=== PATIENT | male | born 1995 | race Caucasian/White ===

== ENCOUNTER 2021-07-02 10:11 | Inpatient (IN) | payer OTHER ==
[2021-07-02 10:38] VITALS: BMI 19.5
[2021-07-02] MEDS ORDERED: MAGNESIUM CITRATE 300 ML BOTTLE PO PRN (13:05)
[2021-07-02] MEDS ORDERED: MAGNESIUM HYDROX 2400MG/30ML ORAL SUSPENSION 30 ML CUP PO PRN (13:05)
[2021-07-02] MEDS ORDERED: P-EPHED 60MG/TRIPROLIDI 2.5MG TABLET PO PRN (13:05)
[2021-07-02] MEDS ORDERED: MAG HYDROX/AL HYDROX/SIMETH 30 ML UNIT-DOSE CUP PO PRN (13:05)
[2021-07-02] MEDS ORDERED: guaiFENesin 200 MG/10 ML 10 ML UNIT-DOSE CUPS PO PRN (13:05)
[2021-07-02] MEDS ORDERED: LOPERAMIDE HCL 2 MG CAPSULE PO PRN (13:05)
[2021-07-02] MEDS ORDERED: TUBERCULIN PPD 5 TU/0.1ML VIAL ID ONE (14:07)
[2021-07-02] MEDS: PRENATAL VITAMINS W/ FOLIC ACID TABLET (FP) PO SCH (14:14)
[2021-07-02] MEDS: hydrOXYzine PAMOATE 25 MG CAPSULE (FP) PO SCH ×3 (14:14→21:01)
[2021-07-02] MEDS: NICOTINE 21 MG/24 HOURS TOPICAL PATCH TD SCH (14:14)
[2021-07-02 15:12] LABS: HEMATOCRIT 43.9 % (35.4-49); HEMOGLOBIN 15.2 GM/dL (11.7-16.9); MCH 33.3 pg (25.7-33.7); MCHC 34.5 g/dl (32.0-35.9); MEAN CELL VOLUME 96.5 fl (80-96); MEAN PLT VOLUME 8.5 fl (7.5-11.1); PLATELET COUNT 290 10^3/uL (134-434); RBC 4.55 M/mm3 (4.00-5.60); RDW 13.2 % (11.9-15.9); WHITE BLOOD COUNT 6.9 K/mm3 (4.0-10.0)
[2021-07-02 15:25] LABS: ALBUMIN 4.6 g/dl (3.4-5.0); BLOOD UREA NITROGEN 17.6 mg/dL (7-18); CALCIUM 9.4 mg/dL (8.5-10.1)
[2021-07-02 15:29] LABS: CREATININE 1.1 mg/dL (0.55-1.3)
[2021-07-02 15:30] LABS: BILIRUBIN,TOTAL 1.6 mg/dL (0.2-1); TOT PROT 7.5 g/dl (6.4-8.2)
[2021-07-02 19:15] LABS: SYPHILIS W/ RPR CONF NON-REACTIVE (NONREACTIVE)
[2021-07-02 19:31] LABS: HIV INTERPRETATION NEGATIVE (NEGATIVE)
[2021-07-02] MEDS: THIAMINE HCL 100 MG TABLET (FP) PO SCH (21:01)
[2021-07-02] MEDS: MELATONIN 5 MG TABLETS PO SCH (21:02)
[2021-07-02] MEDS: NICOTINE 10 MG CARTRIDGE (INHALER) IH PRN (21:05)
[2021-07-03] MEDS: hydrOXYzine PAMOATE 25 MG CAPSULE (FP) PO SCH ×5 (08:08→21:13)
[2021-07-03] MEDS: PRENATAL VITAMINS W/ FOLIC ACID TABLET (FP) PO SCH (09:29)
[2021-07-03] MEDS: NICOTINE 21 MG/24 HOURS TOPICAL PATCH TD SCH (09:29)
[2021-07-03 11:58] LABS: PH,URINE 5.5 (5.0-8.0); URINE APPEARANCE CLEAR; URINE BILIRUBIN NEGATIVE (NEGATIVE); URINE COLOR YELLOW; URINE GLUCOSE (UA) NEGATIVE (NEGATIVE); URINE KETONE TRACE (NEGATIVE); URINE LEUK ESTERASE NEGATIVE (NEGATIVE); URINE NITRITE NEGATIVE (NEGATIVE); URINE PROTEIN NEGATIVE (NEGATIVE); URINE UROBILINOGEN 0.2 mg/dL (0.2-1.0)
[2021-07-03] MEDS ORDERED: BENZOYL PEROXIDE 5% 60 GM GEL..GRAM. TP ONE (12:11)
[2021-07-03] MEDS: COLLOIDAL OATMEAL 1 BAR EACH TP PRN (15:15)
[2021-07-03] MEDS: THIAMINE HCL 100 MG TABLET (FP) PO SCH (21:13)
[2021-07-03] MEDS: MELATONIN 5 MG TABLETS PO SCH (21:14)
[2021-07-04] MEDS: hydrOXYzine PAMOATE 25 MG CAPSULE (FP) PO SCH ×5 (06:36→21:11)
[2021-07-04] MEDS: NICOTINE 21 MG/24 HOURS TOPICAL PATCH TD SCH (09:58)
[2021-07-04] MEDS: PRENATAL VITAMINS W/ FOLIC ACID TABLET (FP) PO SCH (09:58)
[2021-07-04] MEDS ORDERED: MODERNA COVID-19 VACC,MRNA/PF 50 MCG/0.25 ML EACH IM ONE (11:00)
[2021-07-04] MEDS: MELATONIN 5 MG TABLETS PO SCH (21:11)
[2021-07-04] MEDS: THIAMINE HCL 100 MG TABLET (FP) PO SCH (21:11)
[2021-07-04] MEDS: IBUPROFEN 400 MG TABLET (FP) PO PRN (21:12)
[2021-07-05] MEDS: ACETAMINOPHEN 325 MG TABLET (FP) PO PRN (05:49)
[2021-07-05] MEDS: hydrOXYzine PAMOATE 25 MG CAPSULE (FP) PO SCH ×5 (05:50→21:14)
[2021-07-05] MEDS: PRENATAL VITAMINS W/ FOLIC ACID TABLET (FP) PO SCH (09:31)
[2021-07-05] MEDS: NICOTINE 21 MG/24 HOURS TOPICAL PATCH TD SCH (09:33)
[2021-07-05] MEDS: IBUPROFEN 400 MG TABLET (FP) PO PRN ×2 (09:33→17:48)
[2021-07-05] MEDS: ARIPiprazole 2 MG TABLET PO SCH (11:04)
[2021-07-05] MEDS: THIAMINE HCL 100 MG TABLET (FP) PO SCH (21:14)
[2021-07-05] MEDS: MELATONIN 5 MG TABLETS PO SCH (21:15)
[2021-07-05] MEDS: METHOCARBAMOL 500 MG TABLET PO PRN (21:15)
[2021-07-06] MEDS: hydrOXYzine PAMOATE 25 MG CAPSULE (FP) PO SCH ×5 (06:35→21:07)
[2021-07-06] MEDS: NICOTINE 21 MG/24 HOURS TOPICAL PATCH TD SCH (10:13)
[2021-07-06] MEDS: ARIPiprazole 2 MG TABLET PO SCH (10:14)
[2021-07-06] MEDS: PRENATAL VITAMINS W/ FOLIC ACID TABLET (FP) PO SCH (10:14)
[2021-07-06] MEDS: IBUPROFEN 400 MG TABLET (FP) PO PRN (17:37)
[2021-07-06] MEDS: THIAMINE HCL 100 MG TABLET (FP) PO SCH (21:07)
[2021-07-06] MEDS: MELATONIN 5 MG TABLETS PO SCH (21:07)
[2021-07-06] MEDS: METHOCARBAMOL 500 MG TABLET PO PRN (21:09)
[2021-07-07] MEDS: hydrOXYzine PAMOATE 25 MG CAPSULE (FP) PO SCH ×2 (06:59→09:38)
[2021-07-07] MEDS: ARIPiprazole 2 MG TABLET PO SCH (09:37)
[2021-07-07] MEDS: NICOTINE 21 MG/24 HOURS TOPICAL PATCH TD SCH (09:37)
[2021-07-07] MEDS: PRENATAL VITAMINS W/ FOLIC ACID TABLET (FP) PO SCH (09:37)
[2021-07-07] MEDS: THIAMINE HCL 100 MG TABLET (FP) PO SCH (21:15)
[2021-07-07] MEDS: hydrOXYzine PAMOATE 25 MG CAPSULE (FP) PO PRN (21:15)
[2021-07-07] MEDS: METHOCARBAMOL 500 MG TABLET PO PRN (21:15)
[2021-07-07] MEDS: MELATONIN 5 MG TABLETS PO SCH (21:16)
[2021-07-08] MEDS: PRENATAL VITAMINS W/ FOLIC ACID TABLET (FP) PO SCH (10:04)
[2021-07-08] MEDS: ARIPiprazole 2 MG TABLET PO SCH (10:04)
[2021-07-08] MEDS: NICOTINE 21 MG/24 HOURS TOPICAL PATCH TD SCH (10:05)
[2021-07-08] MEDS: NICOTINE 10 MG CARTRIDGE (INHALER) IH PRN (16:41)
[2021-07-08] MEDS: hydrOXYzine PAMOATE 25 MG CAPSULE (FP) PO PRN ×2 (16:45→21:22)
[2021-07-08] MEDS: THIAMINE HCL 100 MG TABLET (FP) PO SCH (21:22)
[2021-07-08] MEDS: MELATONIN 5 MG TABLETS PO SCH (21:22)
[2021-07-08] MEDS: METHOCARBAMOL 500 MG TABLET PO PRN (21:22)
[2021-07-09] MEDS: PANTOPRAZOLE 40 MG TABLET PO SCH (10:02)
[2021-07-09] MEDS: NICOTINE 14 MG/24 HOURS TOPICAL PATCH TD SCH (10:02)
[2021-07-09] MEDS: ARIPiprazole 2 MG TABLET PO SCH (10:03)
[2021-07-09] MEDS: COLLOIDAL OATMEAL 1 BAR EACH TP PRN (10:05)
[2021-07-09] MEDS: MULTIVITAMINS (DAILY MVI) TABLET (FP) PO SCH (10:18)
[2021-07-09] MEDS ORDERED: BENZOYL PEROXIDE 5% 60 GM GEL..GRAM. TP ONE (12:13)
[2021-07-09] MEDS: PRAMOXINE HCL 1% (SARNA SENSITIVE) 222 ML BOTTLE TP SCH (12:20)
[2021-07-09] MEDS: buPROPion HCL 75 MG TABLET PO SCH (14:37)
[2021-07-09] MEDS: hydrOXYzine PAMOATE 25 MG CAPSULE (FP) PO PRN (21:13)
[2021-07-09] MEDS: METHOCARBAMOL 500 MG TABLET PO PRN (21:13)
[2021-07-09] MEDS: THIAMINE HCL 100 MG TABLET (FP) PO SCH (21:13)
[2021-07-09] MEDS: MELATONIN 5 MG TABLETS PO SCH (21:13)
[2021-07-10] MEDS: buPROPion HCL 75 MG TABLET PO SCH (09:57)
[2021-07-10] MEDS: PANTOPRAZOLE 40 MG TABLET PO SCH (09:58)
[2021-07-10] MEDS: ARIPiprazole 2 MG TABLET PO SCH (09:58)
[2021-07-10] MEDS: MULTIVITAMINS (DAILY MVI) TABLET (FP) PO SCH (09:59)
[2021-07-10] MEDS: PRAMOXINE HCL 1% (SARNA SENSITIVE) 222 ML BOTTLE TP SCH (10:00)
[2021-07-10] MEDS: NICOTINE 14 MG/24 HOURS TOPICAL PATCH TD SCH (10:01)
[2021-07-10] MEDS: NICOTINE 10 MG CARTRIDGE (INHALER) IH PRN (18:14)
[2021-07-10] MEDS: hydrOXYzine PAMOATE 25 MG CAPSULE (FP) PO PRN (18:16)
[2021-07-10] MEDS: THIAMINE HCL 100 MG TABLET (FP) PO SCH (21:22)
[2021-07-10] MEDS: MELATONIN 5 MG TABLETS PO SCH (21:22)
[2021-07-10] MEDS: METHOCARBAMOL 500 MG TABLET PO PRN (21:23)
[2021-07-11] MEDS: buPROPion HCL 75 MG TABLET PO SCH (10:18)
[2021-07-11] MEDS: PANTOPRAZOLE 40 MG TABLET PO SCH (10:18)
[2021-07-11] MEDS: ARIPiprazole 2 MG TABLET PO SCH (10:19)
[2021-07-11] MEDS: MULTIVITAMINS (DAILY MVI) TABLET (FP) PO SCH (10:19)
[2021-07-11] MEDS: PRAMOXINE HCL 1% (SARNA SENSITIVE) 222 ML BOTTLE TP SCH (10:19)
[2021-07-11] MEDS: NICOTINE 14 MG/24 HOURS TOPICAL PATCH TD SCH (10:19)
[2021-07-11] MEDS: HYDROCORTISONE 1% TOPICAL CREAM 30 GM TUBE TP SCH ×2 (12:42→23:07)
[2021-07-11] MEDS: MELATONIN 5 MG TABLETS PO SCH (21:29)
[2021-07-11] MEDS: hydrOXYzine PAMOATE 25 MG CAPSULE (FP) PO PRN (21:30)
[2021-07-11] MEDS: THIAMINE HCL 100 MG TABLET (FP) PO SCH (21:31)
[2021-07-11] MEDS: AMOX TR/POT CLAV 875MG/125MG TABLETS (FP) PO SCH (23:05)
[2021-07-12] MEDS: AMOX TR/POT CLAV 875MG/125MG TABLETS (FP) PO SCH ×2 (07:03→18:16)
[2021-07-12] MEDS: PRAMOXINE HCL 1% (SARNA SENSITIVE) 222 ML BOTTLE TP SCH (10:20)
[2021-07-12] MEDS: NICOTINE 14 MG/24 HOURS TOPICAL PATCH TD SCH (10:21)
[2021-07-12] MEDS: MULTIVITAMINS (DAILY MVI) TABLET (FP) PO SCH (10:21)
[2021-07-12] MEDS: PANTOPRAZOLE 40 MG TABLET PO SCH (10:21)
[2021-07-12] MEDS: ARIPiprazole 2 MG TABLET PO SCH (10:21)
[2021-07-12] MEDS: HYDROCORTISONE 1% TOPICAL CREAM 30 GM TUBE TP SCH ×2 (10:23→21:23)
[2021-07-12] MEDS: MELATONIN 5 MG TABLETS PO SCH (21:21)
[2021-07-12] MEDS: THIAMINE HCL 100 MG TABLET (FP) PO SCH (21:21)
[2021-07-12] MEDS: hydrOXYzine PAMOATE 25 MG CAPSULE (FP) PO PRN (21:21)
[2021-07-13] MEDS: AMOX TR/POT CLAV 875MG/125MG TABLETS (FP) PO SCH ×2 (07:03→17:28)
[2021-07-13] MEDS: ARIPiprazole 2 MG TABLET PO SCH (09:48)
[2021-07-13] MEDS: MULTIVITAMINS (DAILY MVI) TABLET (FP) PO SCH (09:48)
[2021-07-13] MEDS: PANTOPRAZOLE 40 MG TABLET PO SCH (09:48)
[2021-07-13] MEDS: NICOTINE 14 MG/24 HOURS TOPICAL PATCH TD SCH (09:49)
[2021-07-13] MEDS: NICOTINE 10 MG CARTRIDGE (INHALER) IH PRN (09:50)
[2021-07-13] MEDS: PRAMOXINE HCL 1% (SARNA SENSITIVE) 222 ML BOTTLE TP SCH (09:50)
[2021-07-13] MEDS: HYDROCORTISONE 1% TOPICAL CREAM 30 GM TUBE TP SCH ×2 (09:50→21:42)
[2021-07-13] MEDS: THIAMINE HCL 100 MG TABLET (FP) PO SCH (21:42)
[2021-07-13] MEDS: MELATONIN 5 MG TABLETS PO SCH (21:42)
[2021-07-13] MEDS: hydrOXYzine PAMOATE 25 MG CAPSULE (FP) PO PRN (21:42)
[2021-07-13] MEDS: P-EPHED 60MG/TRIPROLIDI 2.5MG TABLET PO SCH (21:42)
[2021-07-14] MEDS: ARTIFICIAL TEARS (POLYVINYL ALCOHOL) OPTH DROPS OU PRN ×3 (06:23→15:44)
[2021-07-14] MEDS: P-EPHED 60MG/TRIPROLIDI 2.5MG TABLET PO SCH ×2 (06:24→12:10)
[2021-07-14] MEDS: AMOX TR/POT CLAV 875MG/125MG TABLETS (FP) PO SCH ×2 (07:08→17:37)
[2021-07-14] MEDS: MULTIVITAMINS (DAILY MVI) TABLET (FP) PO SCH (09:48)
[2021-07-14] MEDS: NICOTINE 14 MG/24 HOURS TOPICAL PATCH TD SCH (09:48)
[2021-07-14] MEDS: PANTOPRAZOLE 40 MG TABLET PO SCH (09:48)
[2021-07-14] MEDS: ARIPiprazole 2 MG TABLET PO SCH (09:49)
[2021-07-14] MEDS: PRAMOXINE HCL 1% (SARNA SENSITIVE) 222 ML BOTTLE TP SCH (09:50)
[2021-07-14] MEDS: HYDROCORTISONE 1% TOPICAL CREAM 30 GM TUBE TP SCH ×2 (09:50→21:27)
[2021-07-14] MEDS: NICOTINE 10 MG CARTRIDGE (INHALER) IH PRN (15:44)
[2021-07-14] MEDS: THIAMINE HCL 100 MG TABLET (FP) PO SCH (21:25)
[2021-07-14] MEDS: MELATONIN 5 MG TABLETS PO SCH (21:25)
[2021-07-14] MEDS: hydrOXYzine PAMOATE 25 MG CAPSULE (FP) PO PRN (21:27)
[2021-07-15] MEDS: MULTIVITAMINS (DAILY MVI) TABLET (FP) PO SCH (10:22)
[2021-07-15] MEDS: AMOX TR/POT CLAV 875MG/125MG TABLETS (FP) PO SCH ×2 (10:22→17:21)
[2021-07-15] MEDS: NICOTINE 14 MG/24 HOURS TOPICAL PATCH TD SCH (10:23)
[2021-07-15] MEDS: PRAMOXINE HCL 1% (SARNA SENSITIVE) 222 ML BOTTLE TP SCH (10:23)
[2021-07-15] MEDS: PANTOPRAZOLE 40 MG TABLET PO SCH (10:23)
[2021-07-15] MEDS: HYDROCORTISONE 1% TOPICAL CREAM 30 GM TUBE TP SCH ×2 (10:23→21:18)
[2021-07-15] MEDS: ARIPiprazole 2 MG TABLET PO SCH (10:23)
[2021-07-15] MEDS: ARTIFICIAL TEARS (POLYVINYL ALCOHOL) OPTH DROPS OU PRN (10:24)
[2021-07-15] MEDS: MELATONIN 5 MG TABLETS PO SCH (21:17)
[2021-07-15] MEDS: THIAMINE HCL 100 MG TABLET (FP) PO SCH (21:17)
[2021-07-16] MEDS: AMOX TR/POT CLAV 875MG/125MG TABLETS (FP) PO SCH ×2 (07:19→17:18)
[2021-07-16] MEDS: NICOTINE 14 MG/24 HOURS TOPICAL PATCH TD SCH (09:39)
[2021-07-16] MEDS: MULTIVITAMINS (DAILY MVI) TABLET (FP) PO SCH (09:40)
[2021-07-16] MEDS: ARTIFICIAL TEARS (POLYVINYL ALCOHOL) OPTH DROPS OU PRN (09:40)
[2021-07-16] MEDS: PANTOPRAZOLE 40 MG TABLET PO SCH (09:40)
[2021-07-16] MEDS: PRAMOXINE HCL 1% (SARNA SENSITIVE) 222 ML BOTTLE TP SCH (09:41)
[2021-07-16] MEDS: ARIPiprazole 2 MG TABLET PO SCH (09:41)
[2021-07-16] MEDS: HYDROCORTISONE 1% TOPICAL CREAM 30 GM TUBE TP SCH ×2 (09:41→21:54)
[2021-07-16] MEDS: MELATONIN 5 MG TABLETS PO SCH (21:15)
[2021-07-16] MEDS: hydrOXYzine PAMOATE 25 MG CAPSULE (FP) PO PRN (21:15)
[2021-07-16] MEDS: THIAMINE HCL 100 MG TABLET (FP) PO SCH (21:15)
[2021-07-17] MEDS: AMOX TR/POT CLAV 875MG/125MG TABLETS (FP) PO SCH ×2 (07:07→17:31)
[2021-07-17] MEDS: PANTOPRAZOLE 40 MG TABLET PO SCH (09:39)
[2021-07-17] MEDS: ARIPiprazole 2 MG TABLET PO SCH (09:39)
[2021-07-17] MEDS: MULTIVITAMINS (DAILY MVI) TABLET (FP) PO SCH (09:39)
[2021-07-17] MEDS: PRAMOXINE HCL 1% (SARNA SENSITIVE) 222 ML BOTTLE TP SCH (09:40)
[2021-07-17] MEDS: NICOTINE 14 MG/24 HOURS TOPICAL PATCH TD SCH (09:40)
[2021-07-17] MEDS: HYDROCORTISONE 1% TOPICAL CREAM 30 GM TUBE TP SCH ×2 (09:40→21:12)
[2021-07-17] MEDS: THIAMINE HCL 100 MG TABLET (FP) PO SCH (21:11)
[2021-07-17] MEDS: MELATONIN 5 MG TABLETS PO SCH (21:11)
[2021-07-17] MEDS: hydrOXYzine PAMOATE 25 MG CAPSULE (FP) PO PRN (21:11)
[2021-07-18] MEDS: AMOX TR/POT CLAV 875MG/125MG TABLETS (FP) PO SCH (07:04)
[2021-07-18] MEDS: NICOTINE 14 MG/24 HOURS TOPICAL PATCH TD SCH (09:52)
[2021-07-18] MEDS: PANTOPRAZOLE 40 MG TABLET PO SCH (09:52)
[2021-07-18] MEDS: ARIPiprazole 2 MG TABLET PO SCH (09:53)
[2021-07-18] MEDS: HYDROCORTISONE 1% TOPICAL CREAM 30 GM TUBE TP SCH (09:53)
[2021-07-18] MEDS: ARTIFICIAL TEARS (POLYVINYL ALCOHOL) OPTH DROPS OU PRN (09:53)
[2021-07-18] MEDS: MULTIVITAMINS (DAILY MVI) TABLET (FP) PO SCH (09:53)
[2021-07-18] MEDS: PRAMOXINE HCL 1% (SARNA SENSITIVE) 222 ML BOTTLE TP SCH (09:54)
[2021-07-18] MEDS ORDERED: ARIPiprazole 2 MG TABLET PO SCH (11:19)
[2021-07-18] MEDS: hydrOXYzine PAMOATE 25 MG CAPSULE (FP) PO PRN (21:26)
[2021-07-18] MEDS: THIAMINE HCL 100 MG TABLET (FP) PO SCH (21:26)
[2021-07-18] MEDS: MELATONIN 5 MG TABLETS PO SCH (21:26)
[2021-07-18] MEDS: COLLOIDAL OATMEAL 1 BAR EACH TP PRN (21:52)
[2021-07-19] MEDS: PRAMOXINE HCL 1% (SARNA SENSITIVE) 222 ML BOTTLE TP SCH (10:08)
[2021-07-19] MEDS: ARIPiprazole 5 MG TABLET PO SCH (10:08)
[2021-07-19] MEDS: NICOTINE 14 MG/24 HOURS TOPICAL PATCH TD SCH (10:08)
[2021-07-19] MEDS: MULTIVITAMINS (DAILY MVI) TABLET (FP) PO SCH (10:08)
[2021-07-19] MEDS: PANTOPRAZOLE 40 MG TABLET PO SCH (10:08)
[2021-07-19] MEDS: ARTIFICIAL TEARS (POLYVINYL ALCOHOL) OPTH DROPS OU PRN (10:09)
[2021-07-19] MEDS ORDERED: LORATADINE 10 MG TABLET PO ONE (13:46)
[2021-07-19] MEDS: hydrOXYzine PAMOATE 25 MG CAPSULE (FP) PO PRN ×2 (15:40→21:36)
[2021-07-19] MEDS: MELATONIN 5 MG TABLETS PO SCH (21:35)
[2021-07-19] MEDS: THIAMINE HCL 100 MG TABLET (FP) PO SCH (21:35)
[2021-07-20] MEDS: ARIPiprazole 5 MG TABLET PO SCH (09:49)
[2021-07-20] MEDS: LORATADINE 10 MG TABLET PO SCH (09:50)
[2021-07-20] MEDS: MULTIVITAMINS (DAILY MVI) TABLET (FP) PO SCH (09:50)
[2021-07-20] MEDS: NICOTINE 14 MG/24 HOURS TOPICAL PATCH TD SCH (09:50)
[2021-07-20] MEDS: PANTOPRAZOLE 40 MG TABLET PO SCH (09:50)
[2021-07-20] MEDS: PRAMOXINE HCL 1% (SARNA SENSITIVE) 222 ML BOTTLE TP SCH (09:51)
[2021-07-20] MEDS: ARTIFICIAL TEARS (POLYVINYL ALCOHOL) OPTH DROPS OU PRN (09:51)
[2021-07-20] MEDS: THIAMINE HCL 100 MG TABLET (FP) PO SCH (21:22)
[2021-07-20] MEDS: MELATONIN 5 MG TABLETS PO SCH (21:22)
[2021-07-20] MEDS: hydrOXYzine PAMOATE 25 MG CAPSULE (FP) PO PRN (21:22)
[2021-07-21] MEDS: MULTIVITAMINS (DAILY MVI) TABLET (FP) PO SCH (10:11)
[2021-07-21] MEDS: PANTOPRAZOLE 40 MG TABLET PO SCH (10:11)
[2021-07-21] MEDS: ARIPiprazole 5 MG TABLET PO SCH (10:11)
[2021-07-21] MEDS: ARTIFICIAL TEARS (POLYVINYL ALCOHOL) OPTH DROPS OU PRN (10:12)
[2021-07-21] MEDS: PRAMOXINE HCL 1% (SARNA SENSITIVE) 222 ML BOTTLE TP SCH (10:15)
[2021-07-21] MEDS: NICOTINE 14 MG/24 HOURS TOPICAL PATCH TD SCH (10:15)
[2021-07-21] MEDS: LORATADINE 10 MG TABLET PO SCH (13:24)
[2021-07-21] MEDS: MELATONIN 5 MG TABLETS PO SCH (21:13)
[2021-07-21] MEDS: ACETAMINOPHEN 325 MG TABLET (FP) PO PRN (21:14)
[2021-07-21] MEDS: THIAMINE HCL 100 MG TABLET (FP) PO SCH (23:41)
[2021-07-22] MEDS: NICOTINE 14 MG/24 HOURS TOPICAL PATCH TD SCH (10:14)
[2021-07-22] MEDS: ARIPiprazole 5 MG TABLET PO SCH (10:15)
[2021-07-22] MEDS: PANTOPRAZOLE 40 MG TABLET PO SCH (10:15)
[2021-07-22] MEDS: MULTIVITAMINS (DAILY MVI) TABLET (FP) PO SCH (10:15)
[2021-07-22] MEDS: LORATADINE 10 MG TABLET PO SCH (10:15)
[2021-07-22] MEDS: ARTIFICIAL TEARS (POLYVINYL ALCOHOL) OPTH DROPS OU PRN ×2 (10:16→21:12)
[2021-07-22] MEDS: PRAMOXINE HCL 1% (SARNA SENSITIVE) 222 ML BOTTLE TP SCH (10:17)
[2021-07-22] MEDS: NICOTINE 10 MG CARTRIDGE (INHALER) IH PRN (20:14)
[2021-07-22] MEDS: ACETAMINOPHEN 325 MG TABLET (FP) PO PRN (20:20)
[2021-07-22] MEDS: THIAMINE HCL 100 MG TABLET (FP) PO SCH (21:05)
[2021-07-22] MEDS: MELATONIN 5 MG TABLETS PO SCH (21:05)
[2021-07-22] MEDS: hydrOXYzine PAMOATE 25 MG CAPSULE (FP) PO PRN (21:09)
[2021-07-23 06:34] VITALS: BP 123/79; PULSE 77; TEMP 97.3
== END 2021-07-23 07:00 | disposition home or self-care (01) | DRG 772 ==
LOC: YASAS 10:11 → Y3E 12:41 → Y3W 07-04 15:12 → Y3E 07-05 12:21
PROVIDERS: ADMIT Allergy & Immunology; ATTEND Allergy & Immunology
PROC: HZ42ZZZ Group Counseling for Substance Abuse Treatment, Cognitive-Behavioral (ICD-10-PCS; principal; 2021-07-02)
DX: F10.20 Alcohol dependence, uncomplicated (principal); F14.20 Cocaine dependence, uncomplicated; F12.20 Cannabis dependence, uncomplicated; F17.210 Nicotine dependence, cigarettes, uncomplicated; F19.282 Other psychoactive substance dependence with psychoactive substance-induced sleep disorder; F19.280 Other psychoactive substance dependence with psychoactive substance-induced anxiety disorder; F19.24 Other psychoactive substance dependence with psychoactive substance-induced mood disorder; F41.9 Anxiety disorder, unspecified; F32.A Depression, unspecified; F90.9 Attention-deficit hyperactivity disorder, unspecified type; K58.9 Irritable bowel syndrome, unspecified; K21.9 Gastro-esophageal reflux disease without esophagitis; J32.9 Chronic sinusitis, unspecified; L25.9 Unspecified contact dermatitis, unspecified cause; L85.3 Xerosis cutis; Z62.810 Personal history of physical and sexual abuse in childhood; Z91.410 Personal history of adult physical and sexual abuse
CPT/HCPCS: 0013A; 36415; 80053; 81003; 85027; 86780; 86803; 87389; 91301; 93005; 93010; C9803; U0003; U0005